=== PATIENT | male | born 1995 | race Caucasian/White ===

== ENCOUNTER → 2018-01-02 18:43 | Outpatient (CLI) | payer OTHER, MEDICAID, SELFPAY ==
--- NOTE | 2018-01-02 18:45 | DI.RAD.S_ITS ---
PROCEDURE: XR CHEST 2V INDICATIONS: Chest pain. Clinical concern for spontaneous PTX, L side TECHNIQUE: 2 views of the chest were acquired. COMPARISON: None. FINDINGS: Surgical changes and devices: None. Lungs and pleura: No pleural effusions or pneumothorax. Lungs are clear. Mediastinum: Mediastinal contours are normal. Heart size is normal. Bones and chest wall: No suspicious bony abnormalities. Soft tissues appear unremarkable. IMPRESSION: Negative for pneumothorax or other acute abnormality by plain film. Dictated by: Carlos Hernández M.D. on 01/02/2018 at 19:03 Approved by: Carlos Hernández M.D. on 01/02/2018 at 19:04
== END ==
PROVIDERS: Visit Provider Physician Assistant
DX: R07.81 Pleurodynia (principal)
CPT/HCPCS: 71046

== ENCOUNTER → 2019-11-04 10:15 | Outpatient (CLI) | payer SELFPAY ==
--- NOTE | 2019-11-04 10:17 | DI.RAD.S_ITS ---
PROCEDURE: XR FINGER RT MIN 2V INDICATIONS: r finger pain TECHNIQUE: AP hand, 2 views of the middle finger(s) acquired. COMPARISON: None. FINDINGS: Bones: No fractures or dislocations. No suspicious bony lesions. Mild flexion is evident at the distal interphalangeal joint of the 3rd digit. No bony abnormality is appreciated at this location. Soft tissues: No suspicious soft tissue calcifications. IMPRESSION: Mild flexion at the distal interphalangeal joint of the 3rd digit. No bony abnormalities or fractures. Dictated by: Solomon Pennington M.D. on 11/04/2019 at 9:31 Approved by: Solomon Pennington M.D. on 11/04/2019 at 9:31
== END ==
PROVIDERS: Referring Provider Physician Assistant; Visit Provider Physician Assistant
DX: M79.644 Pain in right finger(s) (principal)
CPT/HCPCS: 73140